=== PATIENT | female | born 2005 | race Caucasian/White ===

== ENCOUNTER 2025-07-30 16:33 | Emergency (ER) | payer OTHER, SELFPAY ==
[2025-07-30 16:33] VITALS: BP 128/65; PULSE 80; RESP 16; TEMP 36.7; O2SAT 100; BMI 23.2
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
[2025-07-30 17:46] VITALS: BP 142/100; PULSE 74; RESP 18; TEMP 36.8; O2SAT 100
[2025-07-30 19:30] VITALS: BP 126/72; PULSE 83; RESP 14; TEMP 36.8; O2SAT 99
== END 2025-07-30 19:30 | disposition home or self-care (01) ==
PROVIDERS: Emergency Provider Emergency Medicine; Visit Provider Emergency Medicine
DX: S40.012A Contusion of left shoulder, initial encounter (principal); V43.62XA Car passenger injured in collision with other type car in traffic accident, initial encounter
CPT/HCPCS: 73030; 99284